=== PATIENT | male | born 1990 | race Caucasian/White ===

== ENCOUNTER 2023-08-27 20:53 | Observation (INO) | payer OTHER, SELFPAY ==
[2023-08-27] VITALS (7 sets, daily range): BP systolic 110–145; BP diastolic 62–93; BMI 24.2
--- NOTE | 2023-08-27 14:10 | ED.GENMED ---
History of Present Illness
<Gladis Bentley PA-C - Last Filed: 08/27/23 20:41>
General
Chief Complaint: Abdominal Symptoms
Source: patient
Exam Limitations: none
Time Seen by Provider: 08/27/23 14:07
Nursing documentation reviewed up to this point in time: agreed with
Travel History
Have you had any contact with someone who has COVID-19?: No
Do you have any symptoms of coronavirus? Fever > 100 degrees, chills, cough, shortness of breath, sore throat, loss of taste or smell, muscle aches, or headache?: No
History of Present Illness
History of Present Illness:
This is a 33-year-old male past medical history of gastritis presenting to the emergency department today with nausea and vomiting for the past 4 days. Patient states that on Friday, he started transitioning from escitalopram to Prozac with a cross
tapering method. He states that immediately after taking this, he started to have nausea and vomiting. He called his psychiatrist who believes that this may be medication reaction and advised him to stop taking this medication. Patient also
recently started propranolol. Patient denies abdominal pain, diarrhea, constipation, dysphagia. Patient states that he cannot tolerate any oral intake, even drinking water he will vomit. Patient states that occasionally he will notice specks of
blood in the vomit, but no sam blood. Patient denies any dizziness, headaches. Patient denies dysuria.
Past History
<Gladis Bentley PA-C - Last Filed: 08/27/23 20:41>
Past History
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
ED Past Surgical History: None
Social History
Tobacco: Non-smoker
Alcohol: None
Drug: Marijuana
Living: with family
Review of Systems
<Gladis Bentley PA-C - Last Filed: 08/27/23 20:41>
Review of Systems
All Other Systems: ROS reviewed and negative except as documented in HPI and ROS
Phy Exam
<Gladis Bentley PA-C - Last Filed: 08/27/23 20:41>
Physical Exam
Physical Exam:
Vitals: Tachycardic otherwise vital signs are stable
General: Patient appears uncomfortable, actively vomiting
Skin: Dry, no rashes or lesions
Head: Traumatic, normocephalic
Throat: No pharyngitis, no tonsillar hypertrophy, no blood in the pharynx
Cardiac: Regular rate and rhythm, no murmur
Pulm: Normal respiratory effort, no wheezes, rales, rhonchi
Abdomen: Patient has no abdominal tenderness. Abdomen is soft, no organomegaly, no rebound tenderness
Neuro: Cranial nerves II to XII intact. Alert and oriented x 3
Course
<Gladis Bentley PA-C - Last Filed: 08/27/23 20:41>
Orders/Labs/Results
Orders:
Orders
08/27/23 14:21
0.9% Sodium Chloride 1000 ml [Nss] 1,000 ml IV BOLUS
Ondansetron Injectable [Zofran] 4 mg IV NOW STA
08/27/23 14:27
Add On- LAB Urgent
Tests Added?: lipase
08/27/23 14:34
Lorazepam [Ativan] 1 mg IV NOW STA
08/27/23 15:11
Complete Blood Count/With Diff Urgent
Comprehensive Metabolic Panel Urgent
Lipase Urgent
Comment: ADD ON
08/27/23 16:09
0.9% Sodium Chloride 500 ml [Nss] 500 ml IV BOLUS
Ondansetron Injectable [Zofran] 4 mg IV NOW STA
08/27/23 17:15
Trimethobenzamide [Tigan] 200 mg IM NOW STA
08/27/23 18:22
Electrocardiogram (*1) Urgent
Reason for Study: QTc Monitoring
EKG- Treatment ONCE
08/27/23 18:46
Diphenhydramine [Benadryl] 50 mg IV NOW STA
08/27/23 19:56
Urine Drug Abuse Screen Urgent
Date Specimen was Collected: 08/27/23
Time Specimen was Collected: 20:26
08/27/23 19:58
Admit/Transfer Patient As Directed
Co-Sign Provider:
Level of Care: Observation services
Assign to:: Medical/Surgical
Physician / Group: [facility]
Diagnosis: Vomiting
08/27/23 20:01
Code Status As Directed
Resuscitation Status: Full Code
Abnormal Lab Results
08/27/23
15:11
Glucose 116 H mg/dl
(70-99)
08/27/23 15:11
08/27/23 15:11
Vital Signs
Initial and Last Documented VS:
Initial Vital Signs
Temp Pulse Resp BP Pulse Ox
98.2 F 111 16 122/93 98
08/27/23 14:02 08/27/23 14:02 08/27/23 14:02 08/27/23 14:02 08/27/23 14:02
Last Documented Vital Signs
Temp Pulse Resp BP Pulse Ox
98.2 F 125 26 131/76 98
08/27/23 14:02 08/27/23 19:01 08/27/23 19:01 08/27/23 18:00 08/27/23 18:45
<Manjeet Cummins, DO - Last Filed: 08/27/23 14:55>
Orders/Labs/Results
Orders:
Orders
08/27/23 14:21
0.9% Sodium Chloride 1000 ml [Nss] 1,000 ml IV BOLUS
Ondansetron Injectable [Zofran] 4 mg IV NOW STA
08/27/23 14:27
Add On- LAB Urgent
Tests Added?: lipase
08/27/23 14:34
Lorazepam [Ativan] 1 mg IV NOW STA
08/27/23 15:11
Complete Blood Count/With Diff Urgent
Comprehensive Metabolic Panel Urgent
Lipase Urgent
Comment: ADD ON
08/27/23 16:09
0.9% Sodium Chloride 500 ml [Nss] 500 ml IV BOLUS
Ondansetron Injectable [Zofran] 4 mg IV NOW STA
08/27/23 17:15
Trimethobenzamide [Tigan] 200 mg IM NOW STA
08/27/23 18:22
Electrocardiogram (*1) Urgent
Reason for Study: QTc Monitoring
EKG- Treatment ONCE
08/27/23 18:46
Diphenhydramine [Benadryl] 50 mg IV NOW STA
08/27/23 19:56
Urine Drug Abuse Screen Urgent
Date Specimen was Collected: 08/27/23
Time Specimen was Collected: 20:26
08/27/23 19:58
Admit/Transfer Patient As Directed
Co-Sign Provider:
Level of Care: Observation services
Assign to:: Medical/Surgical
Physician / Group: [facility]ang
Diagnosis: Vomiting
08/27/23 20:01
Code Status As Directed
Resuscitation Status: Full Code
Abnormal Lab Results
08/27/23
15:11
Glucose 116 H mg/dl
(70-99)
08/27/23 15:11
08/27/23 15:11
Vital Signs
Initial and Last Documented VS:
Initial Vital Signs
Temp Pulse Resp BP Pulse Ox
98.2 F 111 16 122/93 98
08/27/23 14:02 08/27/23 14:02 08/27/23 14:02 08/27/23 14:02 08/27/23 14:02
Last Documented Vital Signs
Temp Pulse Resp BP Pulse Ox
98.2 F 125 26 131/76 98
08/27/23 14:02 08/27/23 19:01 08/27/23 19:01 08/27/23 18:00 08/27/23 18:45
<Gladis Bentley PA-C - Last Filed: 08/27/23 20:41>
MDM/Problems Addressed
Differential Diagnosis Includes:
Differentials include medication reaction, gastroenteritis, cannabinoid hyperemesis syndrome,
MDM/Problems Addressed:
nausea, vomiting

will start IV fluids, zofran, ativan, obtain labs, reassess
Chronic conditions affecting care:
history of gastritis questionable gastroparesis secondary to psychiatric medications
<Gladis Bentley PA-C - Last Filed: 08/27/23 20:41>
*Pulse Oximetry
Patient hypoxic: no
*Critical Care Note
Total Time (30-74mins, 75-104mins- exclusive of procedures): Not Applicable
Data Reviewed
Review of Other/Old Records Reveals: Records (Reviewed previous records from ER physician documentation on 08/11/2020. Reviewed ER physician documentation from 08/08/09)
Further Testing Considered But Not Given:
Considered abdominal imaging however patient is having no abdominal tenderness
<Gladis Bentley PA-C - Last Filed: 08/27/23 20:41>
Patient Management
Escalation/DeEscalation of care consider admission/obs:
This is a 33-year-old male past medical history of gastritis presenting to the emergency department today with nausea and vomiting for the past 4 days. Patient states that on Friday, he started transitioning from escitalopram to Prozac with a cross
tapering method. He states that immediately after taking this, he started to have nausea and vomiting. Patient is unable to tolerate p.o. intake. We have trying to doses as noted from, a dose of Ativan, dose of Tigan, as well as Benadryl, all of
which has not helped with his vomiting. On frequent reassessment, patient repeatedly fails p.o. trial. Patient was given a liter and a half of fluids. Patient remained tachycardic while here in the emergency department. CBC and CMP are within
normal limits. EKG shows normal QT interval. Considering patient's intractable vomiting, we will admit for the IV fluids and further workup
ED Attending Note
<Gladis Bentley PA-C - Last Filed: 08/27/23 20:41>
-
Portions of this chart may have been created with voice recognition software.� Occasional wrong word or��sound alike� substitutions may have occurred due to the inherent limitations of voice recognition software.
<Manjeet Cummins DO - Last Filed: 08/27/23 14:55>
ED Attending Note
Patient seen and examined by attending physician: Yes
I performed the substantive portion of visit, reviewed & personally made and approve the management plan that is documented in note by myself or RAZIA.: Yes
ED Attending Note:
I have seen and evaluated the patient with a [id number] encounter. I have spoken to the advance practicer provider and involved in the medical history, the physical exam, medical decision making.
Evaluation and management service: agree unless noted differently below.
Results interpretation: agree unless noted differently below.
Focused HPI: 33-year-old male presenting with nausea and vomiting. Patient recently was in the process of changing his citalopram to Prozac and propranolol. Patient started vomiting few days ago and he believes it could be medicine related. He
has since stopped the medicine but continues to vomit. He denies abdominal pain.
Physical exam: Actively dry heaving. Abdomen soft and nontender.
Medical Decision Making: Given the nontender abdomen, we discussed low utility for imaging. Patient agrees. Will give IV fluids and give Zofran and Ativan and continue to reassess.
Discharge Plan
Departure
Patient Disposition: Admit
Date of Disposition: 08/27/23
Time of Disposition: 19:17
Presentation/result/management discussed w/ accepting MD/DO: Hospitalist
Condition: Fair
Discharge Problem:
Intractable vomiting
Prescriptions:
No Action
clozapine 100 mg tablet
300 mg PO HS
Rx Instructions:
taken w/ 25mg = 325mg
clonazepam 1 mg tablet
1 mg PO BID PRN (Reason: anxiety)
Patient Comments:
08/27/2023: last filled 04/27/23, 60 tabs for 30 days from [facility]
clozapine 25 mg tablet
25 mg PO HS
Rx Instructions:
taken w/ 300mg = 325mg
escitalopram oxalate 20 mg tablet
10 mg PO DAILY
pantoprazole 40 MG tablet,delayed release (DR/EC)
40 mg PO DAILY
Referrals:
Caio Barbosa MD [Family Provider] -
Interventions
Interventions:
*Risk Screen - Suicide Last Done: 08/27/23 14:02
*General Assessment Last Done: 08/27/23 14:02
*Neglect/Abuse Screening Last Done: 08/27/23 14:02
ED- Fall Risk Assessment Last Done: 08/27/23 15:16
PH-[id number]-[id number] Assessment Last Done: 08/27/23 15:16
Discharge Date and Time
Print Language: SCOTTISH
[2023-08-27] MEDS: ATIVAN 1 MG IV (15:08)
[2023-08-27] MEDS: ZOFRAN 4 MG IV ×2 (15:08→16:24)
[2023-08-27] MEDS: NSS 1000 IV ×2 (15:09→22:05)
[2023-08-27 15:28] LABS: % Basophils 0.3 % (0-2); % Eosinophils 0.6 % (0-6); % Immature Granulocytes 0.3 % (0-0.5); % Lymphocytes 24.7 % (20.5-51.1); % Monocytes 6.1 % (1.7-9.3); Absolute Lymphocytes 1.7 10^3/uL (1.2-3.4); Absolute Monocytes 0.4 10^3/uL (0.1-0.6); Absolute Neutrophils 4.6 10^3/uL (1.4-6.5); Hematocrit 42.2 % (39.0-52.0); Hemoglobin 14.1 g/dL (13.0-18.0); Mean Corp Hgb Conc. 33.4 g/dL (33.0-37.0); Mean Corpuscular Hgb 27.9 pg (27.0-31.0); Mean Corpuscular Volume 83.4 fL (80.0-94.0); Mean Platelet Volume 9.9 fL (7.4-10.4); Nucleated Red Blood Cells % 0 % (-); Platelet Count 253 10^3/uL (130-400); Red Blood Cell Count 5.06 10^6/uL (4.70-6.10); Red Cell Dist. Width 11.9 % (11.5-14.5); White Blood Cell Count 6.8 10^3/uL (4.8-10.8)
[2023-08-27 15:41] LABS: ALT (SGPT) 14 U/L (0-50); AST (SGOT) 20 U/L (17-59); Alkaline Phosphatase 104 U/L (38-126); Blood Urea Nitrogen 12 mg/dl (9-20); Calcium 9.9 mg/dl (8.4-10.2); Carbon Dioxide 24 mmol/L (22-30); Chloride 104 mmol/L (98-107); Glucose 116 mg/dl (70-99); Lipase 53 U/L (23-300); Potassium 3.5 mmol/L (3.5-5.1); Sodium 138 mmol/L (135-145); Total Bilirubin 0.8 mg/dl (0.2-1.3); Total Protein 7.4 g/dl (6.3-8.2); eGFR > 60.00
[2023-08-27] MEDS: NSS 500 IV (16:24)
[2023-08-27] MEDS: TIGAN 200 MG IM (17:27)
[2023-08-27] MEDS: BENADRYL 50 MG IV (18:57)
--- NOTE | 2023-08-27 20:09 | HPS.HSE ---
Family Physician
-
Family Physician: Caio Barbosa
Chief Complaint
-
Nausea and Vomiting
History of Present Illness
Patient is a 33 y/o male past medical history of schizophrenia, depression and GERD who presents with intractable nausea/vomiting. Patient reports he started to feel unwell on Friday. He reports vomiting and dry heaves. He reports abdominal
soreness related to significant vomiting, but denies true abdominal pain. He denies diarrhea, constipation, fever, sweats or chills. He denies sick contacts with similar symptoms. He reports a similar episode a few years ago which was attributed
to marijuana use. He notes he has not used any marijuana in several weeks. He does admits to recent medication changes. His physician was attempting to transition him from Lexapro to Prozac and also started propranolol. He reports not taking the
Prozac or propranolol since Friday but symtpoms have persisteted.
Medical History
Past Medical History
Past Medical History: Reports Other
Additional Past Medical History:
Schizophrenia
Depression
GERD
Past Surgical History: Reports Other
Additional Past Surgical History:
Thumb Surgery
Social History
Tobacco: Non-smoker
Alcohol: None
Drug: Marijuana (Occasional, reports last usuage several weeks ago)
Family History
Family History: Not pertinent
Allergies / Home Medications
Allergies reflects when Allergies were last updated in [employer].
Home Medications with original date entered in [employer]
Allergy/Medication List:
Allergies
Allergy/AdvReac Type Severity Reaction Status Date / Time
metoclopramide [From Reglan] Allergy Unknown Verified 08/27/23 14:01
prochlorperazine Allergy Unknown Verified 08/27/23 14:01
[From Compazine]
Home Medications
clonazepam 1 mg tablet 1 mg PO BID PRN anxiety 08/27/23
clozapine 100 mg tablet 300 mg PO HS 08/27/23
clozapine 25 mg tablet 25 mg PO HS 08/27/23
escitalopram oxalate 20 mg tablet 10 mg PO DAILY 08/27/23
pantoprazole 40 mg tablet,delayed release 40 mg PO DAILY 08/27/23
Review of Systems
-
A 12 point ROS was completed and negative except as noted: Yes
Constitutional: Denies Fever or Chills
Respiratory: Denies Cough or Trouble Breathing
Cardiac: Denies Chest Pain or Palpitations
Abdomen/GI: Reports See HPI
Physical Exam
Vital Signs
Vital Signs
Temp Pulse Resp BP Pulse Ox
98.2 F 125 26 131/76 98
08/27/23 14:02 08/27/23 19:01 08/27/23 19:01 08/27/23 18:00 08/27/23 18:45
Physical Exam
General: Comfortable and Conversant
HEENT: NormoCephalic and Atraumatic
Respiratory: Clear and Non Labored Respirations
Cardiac: S1/S2 and Regular Rhythm
GI: Soft and Tender (Mild tenderness in epigastric region without rebound or guarding)
Rectal: Deferred by Provider
Musculoskeletal: No Clubbing, No Cyanosis and No Edema
Skin: Warm and Dry
Neuro: Awake, Alert, Oriented and Nonfocal/grossly intact
Psych: Calm
Laboratory Results
-
08/27/23 15:11
08/27/23 15:11
Laboratory Results
Total Bilirubin 0.8 mg/dl (0.2-1.3) 08/27/23 15:11
AST 20 U/L (17-59) 08/27/23 15:11
ALT 14 U/L (0-50) 08/27/23 15:11
Alkaline Phosphatase 104 U/L (38-126) 08/27/23 15:11
Lipase 53 U/L (23-300) 08/27/23 15:11
Data Reviewed
-
Lab Data: Labs Reviewed by me
Impression/Plan
-
Intractable Vomiting, possibly medicated-related vs hyperemesis cannabis
-Continue Benadryl prn nausea/vomiting
-Allow clear liquids and advance as tolerated
-Check urine drug screen
-Consider GI consult if symptoms persist
Schizophrenia / Depression
-Continue clozapine
-Continue Lexapro
GERD
-Continue Protonix
DVT proph: SC Heparin
Code Status: Full Code
[2023-08-27 20:52] LABS: Amphetamines Negative (Negative); Barbiturates Negative (Negative); Benzodiazepines Positive (Negative); Buprenorphine Negative (Negative); Cocaine Negative (Negative); Marijuana Positive (Negative); Methadone Negative (Negative); Methamphetamines Positive (Negative); Opiates Negative (Negative); Phencyclidine Negative (Negative); Tricyclic Antidepressants Positive (Negative)
[2023-08-27 21:12] LABS: Fentanyl, Urine Negative (Negative)
--- NOTE | 2023-08-27 22:02 | PTCARENOTE ---
pt. family wants to wait for weight and vitals until he feels ok.
[2023-08-27] MEDS: BENADRYL 25 MG IV (22:05)
[2023-08-27] MEDS: CLOZARIL PO ×2 (22:16)
--- NOTE | 2023-08-27 22:32 | PTCARENOTE ---
Pt. arrived to unit from ED via stretcher. Pt. with nausea and vomiting upon arrival to floor. Parents at bedside. Pt. AAOx3 and able to make needs known. Oriented to unit. Call murdock within reach. Plan of care ongoing.
--- NOTE | 2023-08-27 23:54 | W.PN.UPDATE ---
Update Note
Progress Note Update
Patient seen and examined independently. Agree with findings and plan as set forth in the H&P done by Ronda Reyna PA-C.
Patient is a 33y M with PMH significant for schizophrenia and depression who presents to ED complaining of N/V x 3 days. Patient states that he has had multiple episodes of emesis since Friday and has eulogio unable to tolerate PO intake. He denies
any abdominal pain, diarrhea, fevers / chills, etc. He has prior history of cannabinoid associated emesis - but he denies any THC use in over a week at least.
Patient has recently been transitioning from Lexapro to Prozac with additional of propranolol (took a single dose of each thus far). No other recent med changes.
Ass:
Intractable N/V
Schizophrenia
Depression
GERD
Plan:
Observe overnight for symptom control / further evaluation.
IVF support / antiemetics as tolerated.
Would avoid marijuana use or other substance abuse.
Consider GI evaluation if symptoms do not improve.
Continue Lexapro and hold on transition to Prozac / propranolol for now.
[2023-08-27] MEDS: HEPARIN 5000 UNITS SC (23:59)
[2023-08-28] MEDS: BENADRYL 25 MG IV ×3 (05:50→19:50)
[2023-08-28 06:57] LABS: Hemoglobin 12.5 g/dL (13.0-18.0); Mean Corp Hgb Conc. 33.8 g/dL (33.0-37.0); Mean Corpuscular Hgb 28.1 pg (27.0-31.0); Mean Corpuscular Volume 83.1 fL (80.0-94.0); Mean Platelet Volume 9.6 fL (7.4-10.4); Platelet Count 253 10^3/uL (130-400); Red Blood Cell Count 4.45 10^6/uL (4.70-6.10); Red Cell Dist. Width 11.9 % (11.5-14.5); White Blood Cell Count 10.3 10^3/uL (4.8-10.8)
[2023-08-28 07:00] VITALS: BP 122/79
[2023-08-28 07:10] LABS: Blood Urea Nitrogen 11 mg/dl (9-20); Carbon Dioxide 24 mmol/L (22-30); Chloride 106 mmol/L (98-107); Estimated Creatinine Clearance > 125 ml/min; Glucose 117 mg/dl (70-99); Potassium 3.6 mmol/L (3.5-5.1); Sodium 139 mmol/L (135-145); eGFR > 60.00
[2023-08-28] MEDS: NSS 1000 IV ×2 (08:45→17:21)
[2023-08-28] MEDS: HEPARIN 5000 UNITS SC ×3 (09:57→23:56)
[2023-08-28] MEDS: LEXAPRO PO ×2 (09:58→10:23)
[2023-08-28] MEDS: NSS (PRESERVATIVE FREE) 0.5 ML IV (10:15)
[2023-08-28] MEDS: ATIVAN 1 MG IV (10:16)
--- NOTE | 2023-08-28 10:22 | W.PN.HOSP.TC ---
Today's Communication/Plan
-
await GI input
cont IVF/PPI
check CT scan ab/pelvis
Assessment / Plan
Assessment / Plan
pt is a 33 year old male
Intractable Vomiting, possibly medicated-related vs hyperemesis cannabis--pt with abdominal pain and chills--will Ct scan ab/pelvis--Continue Benadryl prn nausea/vomiting--Allow clear liquids and advance as tolerated--await GI input--urine tox
positive for tricyclics, methamphetamines, benzos, marijuana--cont IVF
Schizophrenia / Depression--Continue clozapine--Continue Lexapro
GERD--Continue IV Protonix
DVT proph: SC Heparin
Code Status: Full Code
Anticipated Discharge: 24 - 48 hours
Subjective/Interval History
-
Date of Service: August 28, 2023
pt appears ill, c/o abdominal pain/chills
Objective Data
-
Labs:
Laboratory Results
08/28/23
06:36
WBC 10.3
Hgb 12.5 L
Hct 37.0 L
Plt Count 253
Sodium 139
Potassium 3.6
Chloride 106
Carbon Dioxide 24
BUN 11
Creatinine 0.7
Glucose 117 H
Calcium 9.0
Vital Signs:
max temp for 24 hours
08/27/23
14:02
Temp 98.2 F
Vital Signs
Temp Pulse Resp BP Pulse Ox
99.3 F 107 18 122/79 99
08/28/23 10:18 08/28/23 07:00 08/28/23 07:00 08/28/23 07:00 08/28/23 07:00
Review of Systems
-
All other systems: Reviewed and negative
Constitutional: Reports Chills
Abdomen/GI: Reports Abdominal Pain, Nausea and Vomiting
Physical Exam
-
General: Well Developed, Well Nourished and Other (appears ill)
HEENT: Normocephalic and Atraumatic
Respiratory: Clear to Auscultation; Negative Wheezes or Rales
Cardiac: Regular Rhythm and S1/S2; Negative Murmur
GI: Soft and Tender (bilateral lower quadrants--no guarding or rebound)
Musculoskeletal: No Clubbing, No Cyanosis and No Edema
Neuro: Awake
--- NOTE | 2023-08-28 10:25 | CM ---
Patient seen at bedside [facility] physician. Patient stated that he did not feel well, mother also present and answered questions for assessment. Patient lives with parents in 2 story home. Patient has no prior DME or VN. Patient is followed by Dr. Bro
Suzypr [phone] independent psychiatrist, last appointment was this past Friday. PCP is Dr. Barbosa and he uses the [facility] in [place]. Patient completed OBS form with mother and signed form placed on chart. Patient was independent of ADL's and
IADL's. Patient mother indicated that patient had support. CM will continue to follow for discharge planning needs.
Plan; home with parents; pending assesments
[2023-08-28] MEDS: OMNIPAQUE 50 ML PO (10:55)
[2023-08-28] MEDS: PROTONIX IV 40 MG IV ×2 (10:56→19:49)
--- NOTE | 2023-08-28 11:04 | CON.GI ---
Addendum entered and electronically signed by Kristopher Noyola MD 08/28/23 18:38:
I saw and examined the patient.
The PA's note was reviewed and I agree with the note.
Comment:
The pt is a 33 year old male with h/o GERD, schizophrenia, anxiety, and gastroparesis who p/w nausea/vomiting.
Impression / Rec:
1. Nausea/vomiting - dx with gastroparesis previously, sees Dr. Harrison. Currently mx with PPI and gastroparesis diet only, no reglan/domperidone. Had EGD's in past (duodenitis in 2009 and esophagitis/HH in 2018 and 2021), last Last EGD was in 2022
with grade B esophagitis and HH. GE scan in 2021 noted > 10% after 4 hrs, +ve for gastroparesis. Occasional marijuana use. pt also admits to recent carbonated beverage but trying to stick to gastroparesis diet. CT today is unremarkable. Agree
with increasing PPI BID, supportive mx.
Original Note:
Consultation
-
Date/Time Consultation Requested: 08/28/23 1015
Date/Time Consultation Performed: 08/28/23 1130
Requesting Provider: Mita Kohli MD
Performing Provider: KEYSHAWN Arias, Kristopher Noyola MD
Reason for Consultation: nausea/vomiting
Medical History
Chief Complaint / HPI
Chief Complaint: nausea.vomiting
History of Present Illness:
Pt is a 33yo with hx GERD, schizophrenia, anxiety HH, esophagitis, gastroparesis with years of nausea/vomiting with periodic GI evaluation. Pt has had several EGD's in past with noted duodenitis in 2009 and esophagitis/ HH in 2018 and 2021.
Last EGD 2022 with concern for grade B esophagitis, 3 cm HH and concern for gastroparesis. Pt has also completed SBFT, MRE which were stable with GE scan in 2021 noted at 10minutes, 60 percent activity in stomach with normal being less than 30
percent. He now presents with onset of nausea/vomiting. In reviewing with family patient was on Escitalopram and had one dose of Prozac and Propranolol then with onset of symptoms. Pt also admits to no stools for several days with abdominal
pain. + occasional marijuana use.
He had intractable vomiting prior to admission with slight improvement after admission. He had minimal streaks of blood with vomiting and admits to some upper and lower abdominal pain. He denies odynophagia, dysphagia, GERD, diarrhea,
constipation or rectal bleeding. He is intolerant of reglan and compazine and Zofran held with interaction with other medication and prolonged QT. He is currently taking PRN ativan, Benadyl and PPI. Pt also pending CT.
Past Medical History
Past Medical History: GERD, Psychiatric (schizophrenia) and Other (recurrent nausea and vomiting, esophagitis, gastroparesis)
Past Surgical History: Other (benign thumb tumor)
Social History
Tobacco: Non-Smoker
Alcohol: None
Drug: Marijuana (occasional )
Living: With Family
Family History
Family History: Other (mother with hx polyps )
Allergies / Home Medications
Allergy/AdvReac Type Severity Reaction Status Date / Time
metoclopramide [From Reglan] Allergy Unknown Verified 08/27/23 14:01
prochlorperazine Allergy Unknown Verified 08/27/23 14:01
[From Compazine]
�Medication �Instructions �Recorded
clonazepam 1 mg tablet 1 mg PO BID PRN anxiety 08/27/23
clozapine 100 mg tablet 300 mg PO HS 08/27/23
clozapine 25 mg tablet 25 mg PO HS 08/27/23
escitalopram oxalate 20 mg tablet 10 mg PO DAILY 08/27/23
pantoprazole 40 mg tablet,delayed 40 mg PO DAILY 08/27/23
release
Review of Systems
-
History Source: Patient and Family
Constitutional: Reports No Symptoms
EENT: Reports No Symptoms
Abdomen/GI: Reports Nausea, Vomiting (trace hematemesis ) and Constipated
: Reports No Symptoms
Musculoskeletal: Reports No Symptoms
Skin: Reports No Symptoms
Neurological: Reports Weakness
Endocrine: Reports No Symptoms
Hematologic/Lymphatic: Reports No Symptoms
Vital Signs
Temp Pulse Resp BP Pulse Ox
99.3 F 107 18 122/79 99
08/28/23 10:18 08/28/23 07:00 08/28/23 07:00 08/28/23 07:00 08/28/23 07:00
Physical Exam
Exam
General: Well Developed, Well Nourished and Other (increased nausea in evaluation)
HEENT: Normocephalic and Anicteric
Respiratory: Clear
Cardiac: Other (tachy)
GI: Soft, Non Distended and Tender (upper and lower discomfort)
Musculoskeletal: No Clubbing and No Cyanosis
Skin: Warm and Dry
Neuro: Awake, Alert and AO x 3
Psych: Calm
Results
WBC 10.3 10^3/uL (4.8-10.8) 08/28/23 06:36
Hgb 12.5 g/dL (13.0-18.0) L 08/28/23 06:36
Hct 37.0 % (39.0-52.0) L 08/28/23 06:36
MCV 83.1 fL (80.0-94.0) 08/28/23 06:36
Plt Count 253 10^3/uL (130-400) 08/28/23 06:36
Absolute Neuts (auto) 4.6 10^3/uL (1.4-6.5) 08/27/23 15:11
Sodium 139 mmol/L (135-145) 08/28/23 06:36
Potassium 3.6 mmol/L (3.5-5.1) 08/28/23 06:36
Chloride 106 mmol/L (98-107) 08/28/23 06:36
Carbon Dioxide 24 mmol/L (22-30) 08/28/23 06:36
BUN 11 mg/dl (9-20) 08/28/23 06:36
Creatinine 0.7 mg/dL (0.7-1.3) 08/28/23 06:36
Calcium 9.0 mg/dl (8.4-10.2) 08/28/23 06:36
Total Bilirubin 0.8 mg/dl (0.2-1.3) 08/27/23 15:11
AST 20 U/L (17-59) 08/27/23 15:11
ALT 14 U/L (0-50) 08/27/23 15:11
Alkaline Phosphatase 104 U/L (38-126) 08/27/23 15:11
Lipase 53 U/L (23-300) 08/27/23 15:11
Diagnostic Image Results:
08/2021 gastric emptying scan
The T1/2 of gastric emptying is abnormal at 136 minutes. The normal T1/2 at our facility is 110 minutes or less. At 120 minutes, approximately 60 percent activity remains within the stomach (normal less than 30 percent). At 240 minutes, greater
than percent activity remains within the stomach (normal less that 10 percent).
IMPRESSION: Mildly prolonged gastric emptying, as detailed above.
2018 MRE
Unremarkable examination of the small bowel. No abnormal enhancement, distention, or obstruction. No filling defect.
Small hiatal hernia.
Borderline splenomegaly. Solid organs otherwise unremarkable.
2009 SBFT Impression: Unremarkable small bowel follow-through. Small bowel folds and caliber within normal limits. Terminal ileum is unremarkable.
Prior GI Procedures:
12/2022 EGD: [facility]
LA Grade B (one or more mucosal breaks greater than 5 mm, not extending
between the tops of two mucosal folds) esophagitis with no bleeding was
found in the distal esophagus. Biopsies were taken with a cold forceps
for histology. Estimated blood loss was minimal.
A 3 cm hiatal hernia was present.
A medium amount of food (residue) was found in the gastric body
consistent with gastroparesis. .
The examined duodenum was normal.
bx focal superficial erosion bx neg
12/2021 EGD [facility]
- LA Grade C reflux esophagitis. Biopsied.
- Biopsies were taken with a cold forceps for
histology in the upper third of the esophagus.
- Small hiatal hernia.
- Normal stomach. Biopsied.
- Normal examined duodenum. Biopsied.
. bx neg celiac, H pylori, eoe
01/2019 [facility] - 3 cm hiatal hernia.
- LA Grade A reflux esophagitis (more in the cardia).
Biopsied.
- Biopsies were taken with a cold forceps for histology
in the middle third of the esophagus.
- Oily gastric fluid.
- Normal examined duodenum. Biopsied.
- Biopsies were taken with a cold forceps for
Helicobacter pylori testing.
bx neg
Colonoscopy:
2021 [facility] Hemorrhoids were found on perianal exam.
The exam was otherwise normal throughout the examined colon.
Biopsies were taken with a cold forceps in the sigmoid colon for
histology. Estimated blood loss was minimal.
The exam was otherwise normal throughout the examined colon.
Perianal excoriations are much improved.
bx neg colitis
Assessment / Plan
-
Pt is a 33yo with hx GERD, schizophrenia, anxiety HH, esophagitis, gastroparesis with years of nausea/vomiting with periodic GI evaluation. Pt has had several EGD's in past with noted duodenitis in 2009 and esophagitis/ HH in 2018 and 2021.
Last EGD 2022 with concern for grade B esophagitis, 3 cm HH and concern for gastroparesis. Pt has also completed SBFT, MRE which were stable with GE scan in 2021 noted at 10minutes, 60 percent activity in stomach with normal being less than 30
percent. He now presents with onset of nausea/vomiting. In reviewing with family patient was on Escitalopram and had one dose of Prozac and Propranolol then with onset of symptoms. Pt also admits to no stools for several days with abdominal
pain. + occasional marijuana use. pt also admits to recent carbonated beverage but trying to stick to gastroparesis diet.
-intractable nausea/vomiting
-abdominal pain
-known gastroparesis
-constipation
-marijuana use
other medical problems:
-GERD
-schizophrenia
-anxiety
-HH
-esophagitis
PLAN:
Etiology of nausea/vomiting related to gastroparesis flare, new change on medication with one dose taken, Cannibis hyperemesis disorder vs other
some improvement since admission but still periods of dry heaves
for CT to rule out other etiology
increase PPI to BID
cont Ativan and Benadryl
if not improved restart Zofran with close follow of QTC
pt intolerant of Reglan and Compazine
add Miralax daily with constipation
Marijuana abstinence
when improved gastroparesis diet-- avoidance of fatty, acidic, spicy and roughage based foods, diet should be low in fat and insoluble fiber avoid carbonated beverages, ETOH and tobacco avoidance (pt and family aware of restriction)
reviewed with Dr. Kohli
mother updated
-
-
Thank you for consultation and allowing me to participate in the patient's care. Please call the [facility] physician during the after hours with any questions or concerns.
[2023-08-28 13:55] VITALS: BP 123/80
[2023-08-28] MEDS: MIRALAX 17 GRAMS PO (14:38)
[2023-08-28 15:00] VITALS: BP 133/83
[2023-08-28] MEDS: NSS (PRESERVATIVE FREE) 10 ML IV (19:49)
[2023-08-28] MEDS: CLOZARIL 300 MG PO (21:12)
[2023-08-28] MEDS: CLOZARIL 25 MG PO (21:12)
[2023-08-28 23:45] VITALS: BP 125/76
[2023-08-29] MEDS: NSS 1000 IV ×2 (06:07→14:35)
[2023-08-29 07:09] VITALS: BP 103/56
[2023-08-29 07:10] LABS: Hematocrit 34.1 % (39.0-52.0); Mean Corp Hgb Conc. 35.2 g/dL (33.0-37.0); Mean Corpuscular Hgb 29.1 pg (27.0-31.0); Mean Corpuscular Volume 82.6 fL (80.0-94.0); Mean Platelet Volume 9.7 fL (7.4-10.4); Platelet Count 215 10^3/uL (130-400); Red Blood Cell Count 4.13 10^6/uL (4.70-6.10); Red Cell Dist. Width 11.9 % (11.5-14.5)
[2023-08-29 07:20] LABS: Blood Urea Nitrogen 10 mg/dl (9-20); Calcium 8.8 mg/dl (8.4-10.2); Carbon Dioxide 26 mmol/L (22-30); Chloride 105 mmol/L (98-107); Estimated Creatinine Clearance 124 ml/min; Glucose 93 mg/dl (70-99); Potassium 3.6 mmol/L (3.5-5.1); Sodium 137 mmol/L (135-145); eGFR > 60.00
[2023-08-29] MEDS: MIRALAX 17 GRAMS PO (07:41)
[2023-08-29] MEDS: PROTONIX IV 40 MG IV ×2 (07:42→21:41)
[2023-08-29] MEDS: NSS (PRESERVATIVE FREE) 10 ML IV ×2 (07:42→21:41)
[2023-08-29] MEDS: LEXAPRO 10 MG PO (07:42)
[2023-08-29] MEDS: HEPARIN 5000 UNITS SC ×2 (07:42→17:12)
--- NOTE | 2023-08-29 11:08 | W.PN.GI.CBS2 ---
Addendum entered and electronically signed by Cornell Duran MD 08/29/23 15:24:
see below
Addendum entered and electronically signed by Cornell Duran MD 08/29/23 15:22:
I saw and examined the patient.
The DIRECTOR FEDERAL or PA's note was reviewed and I agree with the note.
Comment:
Pt feels better overall. thinks clear liquids both his stomach, wants more.
abd: soft, nontender
impression:
gastroparesis
abd pain
N/v
plan:
advance to full liquids
small meals
PPI
avoid marijuana
Original Note:
Today's Communication / Plan
-
continue clears
PPI BID
Assessment / Plan
-
Pt is a 33yo with hx GERD, schizophrenia, anxiety HH, esophagitis, gastroparesis with years of nausea/vomiting with periodic GI evaluation. Pt has had several EGD's in past with noted duodenitis in 2010 and esophagitis/ HH in 2018 and 2021.
Last EGD 2022 with concern for grade B esophagitis, 3 cm HH and concern for gastroparesis. Pt has also completed SBFT, MRE which were stable with GE scan in 2021 noted at 10minutes, 60 percent activity in stomach with normal being less than 30
percent. He now presents with onset of nausea/vomiting. In reviewing with family patient was on Escitalopram and had one dose of Prozac and Propranolol then with onset of symptoms. Pt also admits to no stools for several days with abdominal
pain. + occasional marijuana use. pt also admits to recent carbonated beverage but trying to stick to gastroparesis diet.
-intractable nausea/vomiting
-abdominal pain
-known gastroparesis
-constipation
-marijuana use
other medical problems:
-GERD
-schizophrenia
-anxiety
-HH
-esophagitis
PLAN:
Etiology of nausea/vomiting related to gastroparesis flare, new change on medication with one dose taken, Cannibis hyperemesis disorder vs other
-still with mild nausea, but no further vomiting
-continue PPI (pantoprazole 40mg) BID
-pt intolerant of Reglan and Compazine, consider Zofran but there was a concern for prolonged QT with potential drug interactions so this has been held
-continue Miralax daily with constipation
-pt aware of importance of Marijuana abstinence
-continue clear liquid diet
-when improved gastroparesis diet-- avoidance of fatty, acidic, spicy and roughage based foods, diet should be low in fat and insoluble fiber avoid carbonated beverages, ETOH and tobacco avoidance
Subjective
Subjective
Date of Service: August 29, 2023
Feeling OK, but with continued nausea. No vomiting, fever, chills or diarrhea.
Objective
Data Reviewed
Laboratory Data:
Laboratory Results
08/29/23 06:39
08/29/23 06:39
Laboratory Results
Magnesium 2.0 mg/dl (1.6-2.3) 08/29/23 06:39
Total Bilirubin 0.8 mg/dl (0.2-1.3) 08/27/23 15:11
AST 20 U/L (17-59) 08/27/23 15:11
ALT 14 U/L (0-50) 08/27/23 15:11
Alkaline Phosphatase 104 U/L (38-126) 08/27/23 15:11
Lipase 53 U/L (23-300) 08/27/23 15:11
Vital Signs and I&O:
Vital Signs
Temp Pulse Resp BP Pulse Ox
98.4 F 90 16 103/56 97
08/29/23 07:09 08/29/23 07:09 08/29/23 07:09 08/29/23 07:09 08/29/23 07:09
I&O
03/08/29/23 08/30/23
06:59 06:59 06:59
Intake Total 600 / 600
Balance 600 / 600
Physical Exam
Physical Exam
Cardiology: Normal Sinus Rhythm
Pulmonary: Clear
GI: Soft, Non Distended, Non Tender and Normal Bowel Sounds
--- NOTE | 2023-08-29 13:19 | CM ---
Patient seen at bedside with physician. Patient mother present. Patient plan is to return home with follow up to automation consultant. patient mother to provide transportation home. patient states that he is feeling better, potential plan for discharge home
tomorrow pending physician assessment. CM will continue to follow for discharge planning needs.
Plan; home with no needs.
--- NOTE | 2023-08-29 13:56 | W.PN.HOSP.TC ---
Today's Communication/Plan
-
small frequent meals
advance as per GI
cont PPI and benadryl for nausea
Assessment / Plan
Assessment / Plan
pt is a 33 year old male
Intractable Vomiting, possibly medication-related vs hyperemesis cannabis--pt with abdominal pain and chills--Ct scan ab/pelvis with possibility of colitis, GI not recommending ABX, will hold for now--Continue Benadryl prn nausea/vomiting--Allow
clear liquids and advance as tolerated--apprec GI input--urine tox positive for tricyclics, methamphetamines, benzos, marijuana--cont IVF
Schizophrenia / Depression--Continue clozapine--Continue Lexapro
GERD--Continue IV Protonix
DVT proph: SC Heparin
Code Status: Full Code
Anticipated Discharge: 24 - 48 hours
Subjective/Interval History
-
Date of Service: August 29, 2023
pt looks much better today--walking the halls
Objective Data
-
Labs:
Laboratory Results
08/29/23
06:39
WBC 7.0
Hgb 12.0 L
Hct 34.1 L
Plt Count 215
Sodium 137
Potassium 3.6
Chloride 105
Carbon Dioxide 26
BUN 10
Creatinine 0.8
Glucose 93
Calcium 8.8
Vital Signs:
max temp for 24 hours
08/29/23
07:09
Temp 98.4 F
Vital Signs
Temp Pulse Resp BP Pulse Ox
98.4 F 90 16 103/56 97
08/29/23 07:09 08/29/23 07:09 08/29/23 07:09 08/29/23 07:09 08/29/23 07:09
I&O
08/28/23 08/29/23 08/30/23
06:59 06:59 06:59
Intake Total 600 / 600
Balance 600 / 600
Review of Systems
-
All other systems: Reviewed and negative
Physical Exam
-
General: Well Developed, Well Nourished and No Apparent Distress
HEENT: Normocephalic and Atraumatic
Respiratory: Clear to Auscultation; Negative Wheezes or Rhonchi
Cardiac: Regular Rhythm and S1/S2; Negative Murmur
GI: Soft, Nontender, Nondistended and Normal Bowel Sounds
Musculoskeletal: No Clubbing, No Cyanosis and No Edema
Neuro: Awake
[2023-08-29 15:02] VITALS: BP 131/89
--- NOTE | 2023-08-29 16:13 | W.PN.UPDATE ---
Update Note
Progress Note Update
for billing purposes only
[2023-08-29] MEDS: CLOZARIL 300 MG PO (21:40)
[2023-08-29] MEDS: CLOZARIL 25 MG PO (21:40)
[2023-08-29 23:30] VITALS: BP 106/65
[2023-08-30] MEDS: HEPARIN 5000 UNITS SC ×2 (00:56→08:56)
[2023-08-30] MEDS: NSS 1000 IV (01:07)
[2023-08-30 07:00] VITALS: BP 117/77
[2023-08-30 08:44] LABS: Hematocrit 36.9 % (39.0-52.0); Hemoglobin 12.5 g/dL (13.0-18.0); Mean Corp Hgb Conc. 33.9 g/dL (33.0-37.0); Mean Corpuscular Hgb 28.2 pg (27.0-31.0); Mean Corpuscular Volume 83.3 fL (80.0-94.0); Mean Platelet Volume 9.5 fL (7.4-10.4); Platelet Count 215 10^3/uL (130-400); Red Blood Cell Count 4.43 10^6/uL (4.70-6.10); Red Cell Dist. Width 11.8 % (11.5-14.5); White Blood Cell Count 4.5 10^3/uL (4.8-10.8)
[2023-08-30] MEDS: PROTONIX IV 40 MG IV (08:56)
[2023-08-30] MEDS: NSS (PRESERVATIVE FREE) 10 ML IV (08:56)
[2023-08-30] MEDS: LEXAPRO 10 MG PO (08:57)
[2023-08-30] MEDS: MIRALAX 17 GRAMS PO (08:57)
[2023-08-30 09:02] LABS: Blood Urea Nitrogen 7 mg/dl (9-20); Carbon Dioxide 25 mmol/L (22-30); Chloride 104 mmol/L (98-107); Estimated Creatinine Clearance 124 ml/min; Glucose 95 mg/dl (70-99); Magnesium 1.9 mg/dl (1.6-2.3); Potassium 3.5 mmol/L (3.5-5.1); Sodium 138 mmol/L (135-145); eGFR > 60.00
--- NOTE | 2023-08-30 11:28 | W.PN.HOSP.TC ---
Today's Communication/Plan
-
d/c if tolerates solid food
Assessment / Plan
Assessment / Plan
pt is a 33 year old male
Intractable Vomiting, possibly medication-related vs hyperemesis cannabis--pt with abdominal pain and chills--Ct scan ab/pelvis with possibility of colitis, GI not recommending ABX--Continue Benadryl prn nausea/vomiting--Allow clear liquids and
advance as tolerated--apprec GI input--urine tox positive for tricyclics, methamphetamines, benzos, marijuana--if tolerates solid food can d/c
Schizophrenia / Depression--Continue clozapine--Continue Lexapro
GERD--Continue IV Protonix
DVT proph: SC Heparin
Code Status: Full Code
Anticipated Discharge: Today
Subjective/Interval History
-
Date of Service: August 30, 2023
pt feels much better--wants to eat
Objective Data
-
Labs:
Laboratory Results
08/30/23
08:17
WBC 4.5 L
Hgb 12.5 L
Hct 36.9 L
Plt Count 215
Sodium 138
Potassium 3.5
Chloride 104
Carbon Dioxide 25
BUN 7 L
Creatinine 0.8
Glucose 95
Calcium 9.0
Vital Signs:
max temp for 24 hours
08/29/23
15:02
Temp 99.1 F
Vital Signs
Temp Pulse Resp BP Pulse Ox
98.4 F 104 16 117/77 98
08/30/23 07:00 08/30/23 07:00 08/30/23 07:00 08/30/23 07:00 08/30/23 07:00
I&O
08/29/23 08/30/23 08/31/23
06:59 06:59 06:59
Intake Total 600 / 600 1380 / 1380
Balance 600 / 600 1380 / 1380
Review of Systems
-
All other systems: Reviewed and negative
Physical Exam
-
General: Well Developed, Well Nourished and No Apparent Distress
HEENT: Normocephalic and Atraumatic
Respiratory: Clear to Auscultation; Negative Wheezes or Rhonchi
Cardiac: Regular Rhythm and S1/S2; Negative Murmur
GI: Soft, Nontender, Nondistended and Normal Bowel Sounds
Musculoskeletal: No Clubbing, No Cyanosis and No Edema
Neuro: Awake and Alert
--- NOTE | 2023-08-30 11:37 | W.PN.GI.CBS2 ---
Today's Communication / Plan
-
low residue diet
Assessment / Plan
-
Pt is a 33yo with hx GERD, schizophrenia, anxiety HH, esophagitis, gastroparesis with years of nausea/vomiting with periodic GI evaluation. Pt has had several EGD's in past with noted duodenitis in 2010 and esophagitis/ HH in 2018 and 2021.
Last EGD 2022 with concern for grade B esophagitis, 3 cm HH and concern for gastroparesis. Pt has also completed SBFT, MRE which were stable with GE scan in 2021 noted at 10minutes, 60 percent activity in stomach with normal being less than 30
percent. He now presents with onset of nausea/vomiting. In reviewing with family patient was on Escitalopram and had one dose of Prozac and Propranolol then with onset of symptoms. Pt also admits to no stools for several days with abdominal
pain. + occasional marijuana use. pt also admits to recent carbonated beverage but trying to stick to gastroparesis diet.
-intractable nausea/vomiting
-abdominal pain
-known gastroparesis
-constipation
-marijuana use
other medical problems:
-GERD
-schizophrenia
-anxiety
-HH
-esophagitis
PLAN:
- low residue diet
- marijuana abstinence
- PPI/miralax
if tolerated diet no further inpatient managment needed, f/u with Dr Harrison
Subjective
Subjective
Date of Service: August 30, 2023
Pt tolerated full liquids wants to try regular food, no abd pain or vomiting
Objective
Data Reviewed
Laboratory Data:
Laboratory Results
08/30/23 08:17
08/30/23 08:17
Laboratory Results
Magnesium 1.9 mg/dl (1.6-2.3) 08/30/23 08:17
Total Bilirubin 0.8 mg/dl (0.2-1.3) 08/27/23 15:11
AST 20 U/L (17-59) 08/27/23 15:11
ALT 14 U/L (0-50) 08/27/23 15:11
Alkaline Phosphatase 104 U/L (38-126) 08/27/23 15:11
Lipase 53 U/L (23-300) 08/27/23 15:11
Vital Signs and I&O:
Vital Signs
Temp Pulse Resp BP Pulse Ox
98.4 F 104 16 117/77 98
08/30/23 07:00 08/30/23 07:00 08/30/23 07:00 08/30/23 07:00 08/30/23 07:00
I&O
08/29/23 08/30/23 08/31/23
06:59 06:59 06:59
Intake Total 600 / 600 1380 / 1380
Balance 600 / 600 1380 / 1380
Physical Exam
Physical Exam
HEENT: Anicteric
GI: Soft, Non Distended and Non Tender
Neuro: Non Focal
--- NOTE | 2023-08-30 11:54 | CM ---
Pt for d/c today
Mother at bedside and will transport home
Pt will f/u with [employer] consultant as planned
Plan - home no needs
--- NOTE | 2023-08-30 13:55 | W.DCSUMMARY ---
Discharge Summary
Discharge Data
Date of Admission: 08/27/23
Date of Discharge: 08/30/23
-
Pending Results: No
Hospital Course
Primary care physician : Caio Barbosa
Principal Discharge diagnosis : Intractable vomiting
Chronic Discharge diagnosis : Schizophrenia/depression, gastroesophageal reflux disease
Hospital Course : Patient is a 33-year-old male with a history of schizophrenia, depression who presented with intractable nausea and vomiting. Patient reported he is felt unwell on the Friday prior to admission with vomiting and dry heaves. He
also reported abdominal soreness. He denied any diarrhea, constipation, fever, sweats, or chills. He reported a similar episode a few years ago which was attributed to marijuana use. He stated that he has not used marijuana in several weeks.
Outpatient physician has been transitioning him from Lexapro to Prozac as well as starting propranolol. He had not taken the Prozac or propranolol since the Friday prior to admission but symptoms persisted nevertheless. Patient was brought in as
observation.
Problem #1: Intractable vomiting. This was thought to be medication related versus hyperemesis secondary to marijuana use. Zofran and Compazine were not helping, but the patient did have relief with Benadryl. He tolerated clear liquids and
eventually solid food. GI was consulted. Urine toxicology screen was positive for tricyclic's, methamphetamines, benzos, and marijuana. He has been instructed to avoid marijuana. Patient was complaining of some lower abdominal pain with chills
and CAT scan of the abdomen and pelvis was done which showed the possibility of colitis. GI is not recommending any antibiotics at this time patient feels markedly better off of them and we did not start and will not discharge on antibiotics at
this time.
Problem #2: All other medical issues. These include Schizophrenia/depression, gastroesophageal reflux disease. These medical issues were stable during his hospitalization. Medications were continued as able.
Patient is stable for discharge home at this time. If there are any questions regarding this dictation or his hospital stay, please not hesitate to call. Our office number is [phone].
Important imaging findings :
CT SCAN ABDOMEN/PELVIS IMPRESSION:
Only very small volume oral contrast noted in the cecum and proximal ascending colon. Findings suspicious for thickening of the wall of the distal ascending colon, hepatic flexure proximal transverse colon which could represent COLITIS. No
intestinal obstruction, free air or gross abnormal focal fluid collection.
Unremarkable appendix.
Small right and tiny left pleural effusions. Findings at least suspicious for some soft tissue thickening of the distal thoracic esophagus, markedly limited on this study without oral contrast. Clinical correlation recommended as to any swallowing
difficulty. Consider upper endoscopy or esophagram for more complete evaluation.
Tiny nonobstructing right renal calculus.
Discharge Plan
-
Patient Disposition: Home (Routine Discharge)
Discharge Diagnosis/Procedures: Intractable vomiting, schizophrenia/depression, gastroesophageal reflux disease
Condition: Good
Diet: Other diet
Additional Diets: Small frequent meals
Activity: As tolerated
Driving Restrictions: As prior to admission
Bathing Restrictions: None
Referrals:
Caio Barbosa MD [Family Provider] - in less than 1 week
Additional Discharge Medication Instructions: avoid marijuana
Prescriptions:
New
acetaminophen 325 mg Tablet
650 mg PO Q4HPRN PRN (Reason: mild pain/ fever>100.5F) Qty: 0 0RF
polyethylene glycol 3350 [HealthyLax] 17 gram Powder In Packet
17 g PO DAILY Qty: 0 0RF
Continued
clozapine 100 mg tablet
300 mg PO HS
Rx Instructions:
taken w/ 25mg = 325mg
clonazepam 1 mg tablet
1 mg PO BID PRN (Reason: anxiety)
Patient Comments:
08/27/2023: last filled 04/27/23, 60 tabs for 30 days from [facility]
clozapine 25 mg tablet
25 mg PO HS
Rx Instructions:
taken w/ 300mg = 325mg
escitalopram oxalate 20 mg tablet
10 mg PO DAILY
pantoprazole 40 MG tablet,delayed release (DR/EC)
40 mg PO DAILY
Discharge Orders:
Discharge Patient (As Directed); Ordered 08/30/23
Ordered By: Mita Kohli
Discharge Date and Time
Discharge Date/Time: 08/30/23 12:23
Print Language: DJIBOUTIAN
== END 2023-08-30 12:23 | disposition home or self-care (01) ==
LOC: 3 WEST ACU 20:53
PROVIDERS: Physician Assistant; Physician Assistant Medical; ADMITTING PHYSICIAN Hospitalist; ATTENDING PHYSICIAN Internal Medicine; CONSULT PHYSICIAN Internal Medicine Gastroenterology; EMERGENCY PHYSICIAN Student in an Organized Health Care Education/Training Program; FAMILY PHYSICIAN Family Medicine
DX: R11.2 Nausea with vomiting, unspecified (principal); R10.30 Lower abdominal pain, unspecified; R68.83 Chills (without fever); K31.84 Gastroparesis; F20.9 Schizophrenia, unspecified; F32.A Depression, unspecified; F12.90 Cannabis use, unspecified, uncomplicated; F41.9 Anxiety disorder, unspecified; K21.00 Gastro-esophageal reflux disease with esophagitis, without bleeding; K59.00 Constipation, unspecified; K44.9 Diaphragmatic hernia without obstruction or gangrene; Z79.899 Other long term (current) drug therapy; Z87.19 Personal history of other diseases of the digestive system
CPT/HCPCS: 74177; 80048; 80053; 80306; 80307; 83690; 83735; 85025; 85027; 93005; 96361; 96372; 96374; 96375; 96376; 99284; G0378; Q9967

== ENCOUNTER 2023-09-10 13:36 | Emergency (ER) | payer OTHER, SELFPAY ==
[2023-09-10 13:47] VITALS: BP 139/99
[2023-09-10 14:08] LABS: % Basophils 0.2 % (0-2); % Eosinophils 0.2 % (0-6); % Immature Granulocytes 0.3 % (0-0.5); % Lymphocytes 14.1 % (20.5-51.1); % Monocytes 4.8 % (1.7-9.3); % Neutrophils 80.4 % (42.2-75.2); Absolute Lymphocytes 1.8 10^3/uL (1.2-3.4); Absolute Monocytes 0.6 10^3/uL (0.1-0.6); Hemoglobin 14.5 g/dL (13.0-18.0); Mean Corp Hgb Conc. 33.7 g/dL (33.0-37.0); Mean Corpuscular Hgb 28.1 pg (27.0-31.0); Mean Corpuscular Volume 83.3 fL (80.0-94.0); Mean Platelet Volume 9.7 fL (7.4-10.4); Nucleated Red Blood Cells % 0 % (-); Platelet Count 321 10^3/uL (130-400); Red Blood Cell Count 5.16 10^6/uL (4.70-6.10); Red Cell Dist. Width 12.3 % (11.5-14.5); White Blood Cell Count 12.4 10^3/uL (4.8-10.8)
[2023-09-10 14:20] LABS: ALT (SGPT) 24 U/L (0-50); AST (SGOT) 21 U/L (17-59); Albumin 5.1 g/dl (3.5-5.0); Alkaline Phosphatase 113 U/L (38-126); Blood Urea Nitrogen 15 mg/dl (9-20); Calcium 10.5 mg/dl (8.4-10.2); Carbon Dioxide 21 mmol/L (22-30); Chloride 103 mmol/L (98-107); Glucose 141 mg/dl (70-99); Sodium 139 mmol/L (135-145); Total Bilirubin 0.6 mg/dl (0.2-1.3); Total Protein 7.6 g/dl (6.3-8.2); eGFR > 60.00
[2023-09-10 17:03] VITALS: BP 122/85
--- NOTE | 2023-09-10 17:13 | ED.GENMED ---
History of Present Illness
General
Chief Complaint: Abdominal Symptoms
Time Seen by Provider: 09/10/23 16:45
Travel History
Have you had any contact with someone who has COVID-19?: No
Do you have any symptoms of coronavirus? Fever > 100 degrees, chills, cough, shortness of breath, sore throat, loss of taste or smell, muscle aches, or headache?: No
History of Present Illness
History of Present Illness:
33-year-old male with history of schizophrenia gastroparesis presents to the emergency department for evaluation of intractable vomiting beginning late last night. He was admitted to this hospital approximately week and a half ago for the same, at
that time had variable benefit to antiemetics. Mother notes that he gets severe akathisia with Compazine, Reglan, and Haldol. [place] has traditionally not worked for him. Denies any abdominal pain at this point. Last emesis was 2 to 3 hours ago.
He reports he has ceased all morning use for the past month however was marijuana positive on UDS during his last hospital stay
Past History
Past History
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
ED Past Surgical History: None
Social History
Tobacco: Non-smoker
Alcohol: None
Drug: Marijuana
Living: with family
Review of Systems
Review of Systems
Allergies reviewed?: Yes
All Other Systems: ROS reviewed and negative except as documented in HPI and ROS
Phy Exam
Physical Exam
Physical Exam:
GEN: Well appearing, NAD, WDWN
HEENT: Oral mucosa moist, no scleral icterus
Cardiac: Mildly tachycardic, regular
Lung: No respiratory distress, no tachypnea
Abdomen: Soft, nontender
MSK: No gross deformity or injuries
Skin: Good color, no pallor or jaundice, no rashes
Neuro: AO x3, moves all extremities freely
Psych: Calm, cooperative
Course
Orders/Labs/Results
Orders:
Orders
09/10/23 13:56
CMP [Comprehensive Metabolic Panel] Urgent
Complete Blood Count/With Diff Urgent
09/10/23 17:12
Diphenhydramine [Benadryl] 12.5 mg IV NOW STA
Trimethobenzamide [Tigan] 200 mg IM NOW STA
09/10/23 17:18
0.9% Sodium Chloride 1000 ml [Nss] 1,000 ml IV BOLUS
09/10/23 18:35
Fentanyl, Urine Urgent
Urinalysis Reflex To Culture Urgent
Date Specimen was Collected: 09/10/23
Time Specimen was Collected: 18:30
Urine Drug Abuse Screen Urgent
Date Specimen was Collected: 09/10/23
Time Specimen was Collected: 18:30
Urine Microscopic Reflex Cult Urgent
Abnormal Lab Results
09/10/23 09/10/23
13:56 18:35
WBC 12.4 H 10^3/uL
(4.8-10.8)
Absolute Neuts (auto) 10.0 H 10^3/uL
(1.4-6.5)
Neutrophils % 80.4 H %
(42.2-75.2)
Lymphocytes % 14.1 L %
(20.5-51.1)
Carbon Dioxide 21 L mmol/L
(22-30)
Glucose 141 H mg/dl
(70-99)
Calcium 10.5 H mg/dl
(8.4-10.2)
Albumin 5.1 H g/dl
(3.5-5.0)
Urine Ketones 3+ A
(Negative)
Urine Bilirubin 1+ A
(Negative)
Leukocyte Esterase Rfl Trace A
(Negative)
Urine Bacteria (Reflex) Few A
(Negative)
Ur Tricyclics Screen Positive H
(Negative)
U Methamphetamines Scrn Positive H
(Negative)
U Marijuana (THC) Screen Positive H
(Negative)
09/10/23 13:56
09/10/23 13:56
Vital Signs
Initial and Last Documented VS:
Initial Vital Signs
Pulse Resp BP Pulse Ox
115 20 139/99 97
09/10/23 13:47 09/10/23 13:47 09/10/23 13:47 09/10/23 13:47
Last Documented Vital Signs
Pulse Resp BP Pulse Ox
102 20 126/76 98
09/10/23 19:45 09/10/23 19:45 09/10/23 18:00 09/10/23 18:45
MDM/Problems Addressed
MDM/Problems Addressed:
Vomiting resolved after antiemetic administration in the emergency department. Labs are reassuring. He was treated with IV fluids with good improvement. Continues to test positive for marijuana suggesting some degree of cannabinoid hyperemesis,
counseled on need for marijuana cessation
*Critical Care Note
Total Time (30-74mins, 75-104mins- exclusive of procedures): Not Applicable
ED Attending Note
-
Portions of this chart may have been created with voice recognition software.� Occasional wrong word or��sound alike� substitutions may have occurred due to the inherent limitations of voice recognition software.
Discharge Plan
Departure
Patient Disposition: Home (Routine Discharge)
Date of Disposition: 09/10/23
Time of Disposition: 20:05
Patient with high blood pressure during this ER visit?: No
Discharge Problem:
Cyclical vomiting
Instructions: Cannabis hyperemesis syndrome
Prescriptions:
No Action
clozapine 100 mg tablet
300 mg PO HS
Rx Instructions:
taken w/ 25mg = 325mg
clonazepam 1 mg tablet
1 mg PO BID PRN (Reason: anxiety)
Patient Comments:
08/27/2023: last filled 04/27/23, 60 tabs for 30 days from [facility]
clozapine 25 mg tablet
25 mg PO HS
Rx Instructions:
taken w/ 300mg = 325mg
escitalopram oxalate 20 mg tablet
10 mg PO DAILY
pantoprazole 40 MG tablet,delayed release (DR/EC)
40 mg PO DAILY
acetaminophen 325 mg Tablet
650 mg PO Q4HPRN PRN (Reason: mild pain/ fever>100.5F) Qty: 0 0RF
polyethylene glycol 3350 [HealthyLax] 17 gram Powder In Packet
17 g PO DAILY Qty: 0 0RF
Referrals:
Caio Barbosa MD [Family Provider] -
Activity Restrictions/Additional Instructions:
Follow-up with your heeler
Interventions
Interventions:
*Risk Screen - Suicide Last Done: 09/10/23 17:45
*General Assessment Last Done: 09/10/23 17:45
*Neglect/Abuse Screening Last Done: 09/10/23 17:45
ED- Fall Risk Assessment Last Done: 09/10/23 17:45
*ED COVID-19 Vaccine History Last Done: 09/10/23 13:47
*Nursing Disposition Last Done: 09/10/23 20:12
JS-Kbocvd-Xaeiehorze Assessment Last Done: 09/10/23 17:45
Discharge Date and Time
Discharge Date/Time: 09/10/23 20:12
Print Language: SYRIAC
[2023-09-10] MEDS: TIGAN 200 MG IM (17:19)
[2023-09-10] MEDS: BENADRYL 12.5 MG IV (17:19)
[2023-09-10] MEDS: NSS 1000 IV (17:19)
[2023-09-10 18:00] VITALS: BP 126/76
[2023-09-10 18:43] LABS: Urine Albumin Trace (Neg - Trace); Urine Bilirubin 1+ (Negative); Urine Character Clear (Clear); Urine Color Yellow; Urine Glucose Negative (Negative); Urine Ketone 3+ (Negative); Urine Leukocyte Trace (Negative); Urine Nitrite Negative (Negative); Urine Occult Blood Negative (Negative); Urine Urobilinogen 1+ (Neg - 1+)
[2023-09-10 18:51] LABS: Urine Red Blood Cell 0-2 /HPF (0-2); Urine Squamous Cell 0-2 /LPF (Few)
[2023-09-10 18:52] LABS: Urine Mucus Moderate
[2023-09-10 18:53] LABS: Urine Bacteria Few (Negative); Urine White Cell 0-2 /HPF (0-5)
[2023-09-10 18:59] LABS: Amphetamines Negative (Negative); Barbiturates Negative (Negative); Benzodiazepines Negative (Negative); Buprenorphine Negative (Negative); Cocaine Negative (Negative); Marijuana Positive (Negative); Methadone Negative (Negative); Methamphetamines Positive (Negative); Opiates Negative (Negative); Phencyclidine Negative (Negative); Tricyclic Antidepressants Positive (Negative)
[2023-09-10 19:13] LABS: Fentanyl, Urine Negative (Negative)
== END 2023-09-10 20:12 | disposition home or self-care (01) ==
LOC: EMR 13:36
PROVIDERS: Physician Assistant; Student in an Organized Health Care Education/Training Program; EMERGENCY PHYSICIAN Emergency Medicine; FAMILY PHYSICIAN Family Medicine
DX: R11.15 Cyclical vomiting syndrome unrelated to migraine (principal); F20.9 Schizophrenia, unspecified; K31.84 Gastroparesis
CPT/HCPCS: 99284; 96374; 96372; 96361; 80053; 80306; 80307; 81003; 81015; 85025

== ENCOUNTER → 2024-04-15 06:27 | Day surgery (SDC) | payer OTHER, SELFPAY | LOC: GI 06:27 | PROVIDERS: ATTENDING PHYSICIAN Internal Medicine | DX: R12 Heartburn (principal); R93.3 Abnormal findings on diagnostic imaging of other parts of digestive tract; K44.9 Diaphragmatic hernia without obstruction or gangrene; K22.2 Esophageal obstruction; K21.00 Gastro-esophageal reflux disease with esophagitis, without bleeding; Q40.2 Other specified congenital malformations of stomach; K22.89 Other specified disease of esophagus; R11.0 Nausea | CPT/HCPCS: 43239; 88305 ==

== ENCOUNTER 2024-06-29 08:45 | Emergency (ER) | payer OTHER, SELFPAY ==
[2024-06-29 08:52] VITALS: BP 133/85
[2024-06-29 09:17] LABS: % Basophils 0.6 % (0-2); % Eosinophils 1.3 % (0-6); % Immature Granulocytes 0.5 % (0-0.5); % Lymphocytes 17.2 % (20.5-51.1); % Monocytes 4.5 % (1.7-9.3); % Neutrophils 75.9 % (42.2-75.2); Absolute Basophils 0.1 10^3/uL (0-0.2); Absolute Eosinophils 0.1 10^3/uL (0-0.7); Absolute Lymphocytes 1.5 10^3/uL (1.2-3.4); Absolute Monocytes 0.4 10^3/uL (0.1-0.6); Absolute Neutrophils 6.5 10^3/uL (1.4-6.5); Hematocrit 40.3 % (39.0-52.0); Hemoglobin 13.9 g/dL (13.0-18.0); Mean Corp Hgb Conc. 34.5 g/dL (33.0-37.0); Mean Corpuscular Hgb 28.8 pg (27.0-31.0); Mean Corpuscular Volume 83.4 fL (80.0-94.0); Mean Platelet Volume 9.7 fL (7.4-10.4); Nucleated Red Blood Cells % 0 % (-); Platelet Count 258 10^3/uL (130-400); Red Blood Cell Count 4.83 10^6/uL (4.70-6.10); Red Cell Dist. Width 11.9 % (11.5-14.5); White Blood Cell Count 8.5 10^3/uL (4.8-10.8)
[2024-06-29 09:34] LABS: ALT (SGPT) 17 U/L (0-50); AST (SGOT) 20 U/L (17-59); Albumin 4.7 g/dl (3.5-5.0); Alkaline Phosphatase 95 U/L (38-126); Blood Urea Nitrogen 15 mg/dl (9-20); Calcium 9.5 mg/dl (8.4-10.2); Carbon Dioxide 23 mmol/L (22-30); Chloride 106 mmol/L (98-107); Glucose 150 mg/dl (70-99); Lipase 64 U/L (23-300); Potassium 3.7 mmol/L (3.5-5.1); Sodium 142 mmol/L (135-145); Total Bilirubin 0.4 mg/dl (0.2-1.3); Total Protein 6.6 g/dl (6.3-8.2); eGFR > 60.00
[2024-06-29 09:59] LABS: Lactic Acid 2.9 mmol/L (0.7-2.0)
--- NOTE | 2024-06-29 10:16 | ED.GENMED ---
History of Present Illness
General
Chief Complaint: Abdominal Pain
Source: patient
Exam Limitations: none
Time Seen by Provider: 06/29/24 10:12
History of Present Illness
History of Present Illness:
See MDM
Past History
Past History
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
ED Past Surgical History: None
Social History
Tobacco: Non-smoker
Alcohol: None
Drug: Marijuana
Living: with family
Phy Exam
Physical Exam
Physical Exam:
See MDM
Sepsis
Sepsis Screening
Sepsis Assessment: Sepsis Ruled Out
Sepsis Screen
Sepsis Screen: Sepsis Ruled Out
Date: 06/29/24
Time: 13:08
Course
Orders/Labs/Results
Orders:
Orders
06/29/24 08:55
Urinalysis Reflex To Culture Urgent
Date Specimen was Collected: 06/29/24
Time Specimen was Collected: 08:55
06/29/24 08:57
Complete Blood Count/With Diff Urgent
Comprehensive Metabolic Panel Urgent
Lactic Acid Urgent
Lipase Urgent
06/29/24 10:15
CT Abd/pelvis W Iv Cont Urgent
Comment:
Reason For Exam: RLQ pain, actively vomiting
0.9% Sodium Chloride 1000 ml [Nss] 1,000 ml IV BOLUS
Ketorolac [Toradol] 30 mg IV NOW STA
Morphine Sulfate 4 mg IV NOW STA
Ondansetron Injectable [Zofran] 4 mg IV NOW STA
Abnormal Lab Results
06/29/24
08:57
Neutrophils % 75.9 H %
(42.2-75.2)
Lymphocytes % 17.2 L %
(20.5-51.1)
Glucose 150 H mg/dl
(70-99)
Lactic Acid 2.9 H mmol/L
(0.7-2.0)
06/29/24 08:57
06/29/24 08:57
Vital Signs
Initial and Last Documented VS:
Initial Vital Signs
Temp Pulse Resp BP Pulse Ox
98.2 F 99 22 133/85 99
06/29/24 08:52 06/29/24 08:52 06/29/24 08:52 06/29/24 08:52 06/29/24 08:52
Last Documented Vital Signs
Temp Pulse Resp BP Pulse Ox
98.1 F 90 18 119/79 100
06/29/24 12:58 06/29/24 12:58 06/29/24 12:58 06/29/24 12:58 06/29/24 12:58
MDM/Problems Addressed
Differential Diagnosis Includes:
HPI and MDM Narrative:
34-year-old male presenting with right lower quadrant pain. Symptoms started yesterday. Patient has been persistently vomiting. Mother and father brought him in for further evaluation. Blood work was done in triage. Patient is afebrile and has
normal white blood cell count but patient found to have mildly elevated lactic acid. This is likely related to dehydration rather than sepsis. Mother and father do indicate that his urine has been dark.
Patient is point tender in the right lower quadrant. Given his symptoms, will obtain CT rule out acute appendicitis. Patient given IV fluids to help with lactic acidosis and dehydration. Will provide morphine, Toradol and Zofran
Physical exam
General: Uncomfortable, actively vomiting
HEENT: protecting airway
Neck: appears supple
CV: No evidence of cyanosis
Resp: No accessory muscle use
Abd: Non-distended. Point tenderness to right lower quadrant
Extremities: No deformities
Neuro: alert
Psych: Normal affect
Skin: Intact
Problems Addressed including Acute and Chronic Conditions affecting care:
1. Right lower quadrant pain
Acuity: acute
Prognosis: stable
Details: Will obtain CT to rule out appendicitis versus kidney stone. Patient given Toradol
2. Vomiting
Acuity: acute
Prognosis: stable
Details: Patient given IV Zofran
3. Dehydration
Acuity: acute
Prognosis: stable
Details: Patient started on IV fluids
Updates
CT negative for appendicitis but there is evidence of a distal ureteral stone with hydronephrosis. On reassessment, all symptoms appear to have resolved. I discussed with patient and mother that this is likely a side effect of the medication or he
is passing the stone. Will refer to urology but patient and mother feel comfortable going home
Based on his clinical dehydration, lactic acidosis is likely related to fluid rather than infectious etiology. Patient denies pain with urination. He is afebrile and has a normal white blood cell count
Differential Diagnosis (but not limited to): Acute appendicitis, colitis, kidney stone
Testing considered: Abdominal ultrasound
Drug therapy (if applicable): OTC meds, please see d/c instruction regarding Rx drugs
Amount and/or Complexity of Data Reviewed
Clinical info obtained from: Patient
External data reviewed: N/A
Labs I independently reviewed (but not limited to): White blood cell count normal, lactic acidosis
Radiology: The CT scan was personally and independently reviewed. In addition, official CT report reviewed.
Pulse Ox: not hypoxic
EKG independently reviewed: N/A
Well Logger: N/A
Critical Care: N/A
Risk of Complication:
Social Determinants of health: Good social support
Discussed with other providers: N/A
Escalation of Care includes Admit/Obs: After being observed in the Emergency Department, pt stable for discharge.
Occasional wrong word or 'sound a like' substitutions may have occurred due to the inherent limitations of voice recognition software. Read the chart carefully and recognize, using context, where substitutions have occurred.
*Critical Care Note
Total Time (30-74mins, 75-104mins- exclusive of procedures): Not Applicable
ED Attending Note
-
Portions of this chart may have been created with voice recognition software.� Occasional wrong word or��sound alike� substitutions may have occurred due to the inherent limitations of voice recognition software.
Discharge Plan
Departure
Patient Disposition: Home (Routine Discharge)
Date of Disposition: 06/29/24
Time of Disposition: 13:08
Patient with high blood pressure during this ER visit?: No
Discharge Problem:
Kidney stone on right side, Dehydration
Instructions: Kidney Stones (DC)
Prescriptions:
New
diclofenac potassium 50 mg tablet
50 mg PO BID Qty: 20 0RF
tamsulosin [Flomax] 0.4 mg Capsule
0.4 mg PO DAILY Qty: 14 0RF
ondansetron 4 mg Tablet,Disintegrating
4 mg PO BIDPRN PRN (Reason: nausea/vomiting) Qty: 10 0RF
oxycodone 5 mg tablet
5 mg PO Q8H PRN (Reason: Pain) Qty: 14 0RF
No Action
clozapine 100 mg tablet
300 mg PO HS
Rx Instructions:
taken w/ 25mg = 325mg
clonazepam 1 mg tablet
1 mg PO BID PRN (Reason: anxiety)
Patient Comments:
08/27/2023: last filled 04/27/23, 60 tabs for 30 days from [facility]
clozapine 25 mg tablet
25 mg PO HS
Rx Instructions:
taken w/ 300mg = 325mg
escitalopram oxalate 20 mg tablet
10 mg PO DAILY
pantoprazole 40 MG tablet,delayed release (DR/EC)
40 mg PO DAILY
acetaminophen 325 mg Tablet
650 mg PO Q4HPRN PRN (Reason: mild pain/ fever>100.5F) Qty: 0 0RF
polyethylene glycol 3350 [HealthyLax] 17 gram Powder In Packet
17 g PO DAILY Qty: 0 0RF
Referrals:
Mirza Navarrete MD [Active] -
Caio Barbosa MD [Family Provider] -
Activity Restrictions/Additional Instructions:
Please return for any worsening symptoms.
You may return at any time if you have further concerns.
Please follow up with your doctor at the first available appointment, preferably this week.
Please make an appointment to see the urologist.
Thank you for choosing [facility].
Interventions
Interventions:
*Risk Screen - Suicide Last Done: 06/29/24 08:52
*General Assessment Last Done: 06/29/24 10:28
*Neglect/Abuse Screening Last Done: 06/29/24 10:28
*ED COVID-19 Vaccine History Last Done: 06/29/24 10:28
TK-Ctskat-Plgnvqharc Assessment Last Done: 06/29/24 10:28
Discharge Date and Time
Print Language: [id number]
[2024-06-29] MEDS: ZOFRAN 4 MG IV (10:24)
[2024-06-29] MEDS: NSS 1000 IV (10:24)
[2024-06-29] MEDS: MORPHINE SULFATE 4 MG IV (10:26)
[2024-06-29] MEDS: TORADOL 30 MG IV (10:27)
[2024-06-29 10:30] VITALS: BMI 22.1
[2024-06-29 11:08] VITALS: BP 138/89
[2024-06-29 12:58] VITALS: BP 119/79
== END 2024-06-29 13:22 | disposition home or self-care (01) ==
LOC: EMR 08:45
PROVIDERS: Emergency Medicine; EMERGENCY PHYSICIAN Student in an Organized Health Care Education/Training Program; FAMILY PHYSICIAN Family Medicine
DX: N20.0 Calculus of kidney (principal); E86.0 Dehydration
CPT/HCPCS: 99284; 96374; 96375; 96361; 74177; 80053; 83605; 83690; 85025; Q9967